=== PATIENT | male | born 1995 | race Hispanic/Latino ===

== ENCOUNTER 2017-11-30 13:38 | Emergency (ER) | payer SELFPAY ==
[2017-11-30] MEDS ORDERED: TETANUS/DIPHTHERIA TOXOID [ADULT] 0.5 ML VIAL IM ONE (14:03)
== END 2017-11-30 14:36 | disposition home or self-care (01) ==
LOC: EDH 13:38
DX: S01.01XA Laceration without foreign body of scalp, initial encounter (principal); Z72.0 Tobacco use; W20.8XXA Other cause of strike by thrown, projected or falling object, initial encounter; Y93.89 Activity, other specified; Y92.89 Other specified places as the place of occurrence of the external cause; Y99.9 Unspecified external cause status
CPT/HCPCS: 12032; 90471; 90714

== ENCOUNTER 2022-04-28 11:44 | Emergency (ER) | payer OTHER ==
[~2022-04-28] VITALS: Ht 162.6 cm; Wt 80.3 kg
[2022-04-28 11:48] VITALS: BP 124/81
[2022-04-28] MEDS ORDERED: IBUP-2070 PO (12:28)
[2022-04-28] MEDS ORDERED: TETANUS/DIPHTHERIA TOXOID [ADULT] 0.5 ML VIAL IM ONE (12:30)
[2022-04-28] MEDS ORDERED: IBUPROFEN 600 MG TABLET PO ONE (12:30)
== END 2022-04-28 13:00 | disposition home or self-care (01) ==
LOC: EDH 11:44
DX: S60.222A Contusion of left hand, initial encounter (principal); V19.88XA Pedal cyclist (driver) (passenger) injured in other specified transport accidents, initial encounter; Y93.89 Activity, other specified; Y92.89 Other specified places as the place of occurrence of the external cause; Y99.8 Other external cause status
CPT/HCPCS: 73130; 90471; 90714